=== PATIENT | female | born 1940 | race Caucasian/White ===

== ENCOUNTER 2016-09-10 09:31 | Day surgery (SDC) | payer MEDICARE, BC ==
[~2016-09-10] VITALS: Ht 162.6 cm; Wt 50.0 kg
[~2016-09-10 09:31] MED LIST: ASPI-557 PO; CHLO25TA2 PO; LIDOCAINE 1% (10mg/ml) 2ml SDV INJ ONE; LISI-625 PO; LR 1,000 ML IV SCH; MULT-933 PO; SOLI10TA5 PO
--- OUTSIDE RECORDS SUMMARY | 2016-09-10 09:36 | XMS REPORT | Referral Summary ---
Author Author [facility] Organization [facility] Address Unknown Phone Unavailable Care Team Providers Care Electrical Superintendent Name Role Phone Ion Borja Primary Care Physician [phone] Encounter VC Date(s): 11/04/15 - 11/04/15 [facility] [address] [place], [place] [address] Discharge Diagnosis: Female cystocele Discharge Diagnosis: Urinary incontinence Discharge Diagnosis: OAB (overactive bladder) Discharge Diagnosis: Rectocele, female Discharge Diagnosis: Cystocele, midline Discharge Disposition: 01-Home or Self Care Attending Physician: Sumi Blas APRN Admitting Physician: Sumi Blas APRN Vital Signs Most recent to 1 oldest [Reference Range]: Blood Pressure 132/60 mmHg [90-140/60-90 mmHg] (11/04/15 9:27 AM) Problem List Condition Effective Dates Status Health Status Informant Abnormal Active mammogram(Confirmed) Chronic interstitial Active cystitis (disorder)(Confirmed ) Allergies, Adverse Reactions, Alerts No Known Medication Allergies Medications lisinopril 5 mg oral tablet 5 mg 1 tabs, Oral, Daily, # 30 tabs, 0 Refill(s) Start Date: 11/04/15 Status: Ordered multivitamin 1 tabs, Oral, Daily Start Date: 02/01/14 Status: Ordered VESIcare 10 mg oral tablet 10 mg 1 tabs, Oral, Daily, # 30 tabs, 11 Refill(s), Pharmacy: [id number], 1 tabs Oral Daily Start Date: 11/04/15 Status: Ordered Vitamin C 1000 mg oral tablet 1 tabs, Oral, Daily Start Date: 02/01/14 Status: Ordered Results No data available for this section Immunizations Vaccine Date Refusal Reason influenza virus vaccine, inactivated 01/19/14 influenza virus vaccine, live 02/21/13 influenza virus vaccine, live 03/29/12 zoster vaccine live 02/20/08 Procedures Procedure Date Related Diagnosis Body Site Hernia repair 2007 Colonoscopy 2006 Social History Social History Type Response Smoking Status Never smoker Assessment and Plan Extracted from: Title: Office Visit Note Author: Sumi Blas PHYSICAL FITNESS TEACHER Date: 11/04/15 Assessment/Plan 1.OAB (overactive bladder) 2.Urinary incontinence 3.Female cystocele 4.Rectocele, female Patient wishes to continue with her current treatment regimen at this time. She will follow-up in the office in 6 months for symptom evaluation. If she has questions or concerns prior to that she will contact our office. All of her questions were answered to her satisfaction. Orders: solifenacin, 10 mg 1 tabs, Oral, Daily, # 30 tabs, 11 Refill(s), Pharmacy: [id number], 1 tabs Oral Daily
--- OUTSIDE RECORDS SUMMARY | 2016-09-10 09:36 | XMS REPORT | Referral Summary ---
Author Author [facility] Organization [facility] Address Unknown Phone Unavailable Care Team Providers Care Grain Origination Specialist Name Role Phone Keny Chowdhury Primary Care Physician [phone] Encounter VC Date(s): 10/17/14 - 10/17/14 [facility] [address] [place], [place] [address] Discharge Diagnosis: Overactive bladder Discharge Disposition: 01-Home or Self Care Attending Physician: Berhane Boucher MD Admitting Physician: Berhane Boucher MD Vital Signs Most recent to 1 oldest [Reference Range]: Blood Pressure 146/68 mmHg [90-140/60-90 mmHg] *HI* (10/17/14 10:13 AM) Problem List Condition Effective Dates Status Health Status Informant Abnormal Active mammogram(Confirmed) Chronic interstitial Active cystitis (disorder)(Confirmed ) Allergies, Adverse Reactions, Alerts No Known Medication Allergies Medications multivitamin 1 tabs, Oral, Daily Start Date: 02/01/14 Status: Ordered VESIcare 10 mg oral tablet See Instructions, 1 TABS ORAL DAILY, # 30 tabs, 4 Refill(s), eRx: [facility], 1 TABS ORAL DAILY Start Date: 12/12/14 Status: Ordered Vitamin C 1000 mg oral tablet 1 tabs, Oral, Daily Start Date: 02/01/14 Status: Ordered Results No data available for this section Immunizations Vaccine Date Refusal Reason influenza virus vaccine, inactivated 01/19/14 influenza virus vaccine, live 02/21/13 influenza virus vaccine, live 03/29/12 zoster vaccine live 02/20/08 Procedures Procedure Date Related Diagnosis Body Site Measurement of post-voiding residual urine 10/17/14 and/or bladder capacity by ultrasound, non-imaging Hernia repair 2007 Colonoscopy 2006 Social History Social History Type Response Smoking Status Never smoker Assessment and Plan Extracted from: Title: Ambulatory Patient Education Author: Berhane Boucher MD Date: Family Medicine Overactive Bladder, Adult The bladder has two functions that are totally opposite of the other. One is to relax and stretch out so it can store urine (fills like a balloon), and the other is to contract and squeeze down so that it can empty the urine that it has stored. Proper functioning of the bladder is a complex mixing of these two functions. The filling and emptying of the bladder can be influenced by: The bladder. The spinal cord. The brain. The nerves going to the bladder. Other organs that are closely related to the bladder such as prostate in males and the vagina in females. As your bladder fills with urine, nerve signals are sent from the bladder to the brain to tell you that you may need to urinate. Normal urination requires that the bladder squeeze down with sufficient strength to empty the bladder, but this also requires that the bladder squeeze down sufficiently long to finish the job. In addition the sphincter muscles, which normally keep you from leaking urine, must also relax so that the urine can pass. Coordination between the bladder muscle squeezing down and the sphincter muscles relaxing is required to make everything happen normally. With an overactive bladder sometimes the muscles of the bladder contract unexpectedly and involuntarily and this causes an urgent need to urinate. The normal response is to try to hold urine in by anny the sphincter muscles. Sometimes the bladder contracts so strongly that the sphincter muscles cannot stop the urine from passing out and incontinence occurs. This kind of incontinence is called urge incontinence. Having an overactive bladder can be embarrassing and awkward. It can keep you from living life the way you want to. Many people think it is just something you have to put up with as you grow older or have certain health conditions. In fact, there are treatments that can help make your life easier and more pleasant. CAUSES Many things can cause an overactive bladder. Possibilities include: Urinary tract infection or infection of nearby tissues such as the prostate. Prostate enlargement. In women, multiple pregnancies or surgery on the uterus or urethra. Bladder stones, inflammation or tumors. Caffeine. Alcohol. Medications. For example, diuretics (drugs that help the body get rid of extra fluid) increase urine production. Some other medicines must be taken with lots of fluids. Muscle or nerve weakness. This might be the result of a spinal cord injury , a stroke, multiple sclerosis or Parkinson's disease. Diabetes can cause a high urine volume which fills the bladder so quickly that the normal urge to urinate is triggered very strongly. SYMPTOMS Loss of bladder control. You feel the need to urinate and cannot make your body wait. Sudden, strong urges to urinate. Urinating 8 or more times a day. Waking up to urinate two or more times a night. DIAGNOSIS To decide if you have overactive bladder, your healthcare provider will probably : Ask about symptoms you have noticed. Ask about your overall health. This will include questions about any medications you are taking. Do a physical examination. This will help determine if there are obvious blockages or other problems. Order some tests. These might include: A blood test to check for diabetes or other health issues that could be contributing to the problem. Urine testing. This could measure the flow of urine and the pressure on the bladder. A test of your neurological system (the brain, spinal cord and nerves). This is the system that senses the need to urinate. Some of these tests are called flow tests, bladder pressure tests and electrical measurements of the sphincter muscle. A bladder test to check whether it is emptying completely when you urinate. Cytoscopy. This test uses a thin tube with a tiny camera on it. It offers a look inside your urethra and bladder to see if there are problems. Imaging tests. You might be given a contrast dye and then asked to urinate. X-rays are taken to see how your bladder is working. TREATMENT An overactive bladder can be treated in many ways. The treatment will depend on the cause. Whether you have a mild or severe case also makes a difference. Often , treatment can be given in your healthcare provider's office or clinic. Be sure to discuss the different options with your caregiver. They include: Behavioral treatments. These do not involve medication or surgery: Bladder training. For this, you would follow a schedule to urinate at regular intervals. This helps you learn to control the urge to urinate. At first , you might be asked to wait a few minutes after feeling the urge. In time, you should be able to schedule bathroom visits an hour or more apart. Kegel exercises. These exercises strengthen the pelvic floor muscles, which support the bladder. By toning these muscles, they can help control urination, even if the bladder muscles are overactive. A specialist will teach you how to do these exercises correctly. They will require daily practice. Weight loss. If you are obese or overweight, losing weight might stop your bladder from being overactive. Talk to your healthcare provider about how many pounds you should lose. Also ask if there is a specific program or method that would work best for you. Diet change. This might be suggested if constipation is making your overactive bladder worse. Your healthcare provider or a engagement lead can explain ways to change what you eat to ease constipation. Other people might need to take in less caffeine or alcohol. Sometimes drinking fewer fluids is needed, too. Protection. This is not an actual treatment. But, you could wear special pads to take care of any leakage while you wait for other treatments to take effect. This will help you avoid embarrassment. Physical treatments. Electrical stimulation. Electrodes will send gentle pulses to the nerves or muscles that help control the bladder. The goal is to strengthen them. Sometimes this is done with the electrodes outside of the body. Or, they might be placed inside the body (implanted ). This treatment can take several months to have an effect. Medications. These are usually used along with other treatments. Several medicines are available. Some are injected into the muscles involved in urination. Others come in pill form. Medications sometimes prescribed include: Anticholinergics. These drugs block the signals that the nerves deliver to the bladder. This keeps it from releasing urine at the wrong time. Researchers think the drugs might help in other ways, too. Imipramine. This is an antidepressant. But, it relaxes bladder muscles. Botox. This is still experimental. Some people believe that injecting it into the bladder muscles will relax them so they work more normally. It has also been injected into the sphincter muscle when the sphincter muscle does not open properly. This is a temporary fix, however. Also, it might make matters worse, especially in older people. Surgery. A device might be implanted to help manage your nerves. It works on the nerves that signal when you need to urinate. Surgery is sometimes needed with electrical stimulation. If the electrodes are implanted, this is done through surgery. Sometimes repairs need to be made through surgery. For example, the size of the bladder can be changed. This is usually done in severe cases only. HOME CARE INSTRUCTIONS Take any medications your healthcare provider prescribed or suggested. Follow the directions carefully. Practice any lifestyle changes that are recommended. These might include: Drinking less fluid or drinking at different times of the day. If you need to urinate often during the night, for example, you may need to stop drinking fluids early in the evening. Cutting down on caffeine or alcohol. They can both make an overactive bladder worse. Caffeine is found in coffee, tea and sodas. Doing Kegel exercises to strengthen muscles. Losing weight, if that is recommended. Eating a healthy and balanced diet. This will help you avoid constipation. Keep a journal or a log. You might be asked to record how much you drink and when, and also when you feel the need to urinate. Learn how to care for implants or other devices, such as pessaries. SEEK MEDICAL CARE IF: Your overactive bladder gets worse. You feel increased pain or irritation when you urinate. You notice blood in your urine. You have questions about any medications or devices that your healthcare provider recommended. You notice blood, pus or swelling at the site of any test or treatment procedure. You have an oral temperature above 102 F (38.9 C). SEEK IMMEDIATE MEDICAL CARE IF: You have an oral temperature above 102 F (38.9 C), not controlled by medicine. Document Released: 02/06/2010 Document Revised: 07/04/2012 Document Reviewed: ExitCare Patient Information 2014 [employer]. No follow up information was provided.
--- OUTSIDE RECORDS SUMMARY | 2016-09-10 09:36 | XMS REPORT | Referral Summary ---
Author Author [facility] Organization [facility] Address Unknown Phone Unavailable Care Team Providers Care Export Packer Name Role Phone Keny Chowdhury Primary Care Physician [phone] Encounter VC Date(s): 10/17/14 - 10/17/14 [facility] [address] [place], [place] [address] Discharge Diagnosis: Overactive bladder Discharge Disposition: 01-Home [...] DAILY, # 30 tabs, 4 Refill(s), eRx: [facility], 1 TABS ORAL DAILY Start Date: 12/12/14 [...] bladder worse. Your healthcare provider or a lens dotter can explain ways to change what you [...] 07/04/2012 Document Reviewed: ExitCare Patient Information 2014 [employer]. No follow up information was provided.
--- OUTSIDE RECORDS SUMMARY | 2016-09-10 09:36 | XMS REPORT | Referral Summary ---
Author Author [facility] Organization [facility] Address Unknown Phone Unavailable Care Team Providers Care Assembler Bonding Name Role Phone Ion Borja Primary Care Physician [phone] Encounter Date(s): 05/06/16 - 05/06/16 [facility] [address] [place] [address] Discharge Diagnosis: Microhematuria Discharge Disposition: 01-Home or Self Care Attending Physician: Berhane Boucher MD Admitting Physician: Berhane Boucher MD Vital Signs No data available for this section Problem List Condition Effective Dates Status Health Status Informant Abnormal Active mammogram(Confirmed) Chronic interstitial Active cystitis (disorder)(Confirmed ) Allergies, Adverse Reactions, Alerts No Known Medication Allergies Medications Aspir 81 mg, Oral, Daily, 0 Refill(s) Start Date: 05/06/16 Status: Ordered lisinopril 5 mg oral tablet 5 mg 1 tabs, Oral, Daily, # 30 tabs, 0 Refill(s) Start Date: 11/04/15 Status: Ordered multivitamin 1 tabs, Oral, Daily Start Date: 02/01/14 Status: Ordered VESIcare 10 mg oral tablet See Instructions, TAKE 1 TABLET BY MOUTH DAILY, # 30 tabs, eRx: [facility], TAKE 1 TABLET BY MOUTH DAILY Start Date: 12/26/15 Status: Ordered Vitamin C 1000 mg oral tablet 1 tabs, Oral, Daily Start Date: 02/01/14 Status: Ordered Results No data available for this section Immunizations Given and Recorded Vaccine Date Status Refusal Reason influenza virus vaccine, inactivated 01/19/14 Recorded influenza virus vaccine, live 02/21/13 Given influenza virus vaccine, live 03/29/12 Given zoster vaccine live 10/27/08 Given Procedures Procedure Date Related Diagnosis Body Site Measurement of post-voiding residual urine 05/06/16 and/or bladder capacity by ultrasound, non-imaging Hernia repair 2007 Colonoscopy 2006 Social History Social History Type Response Smoking Status Never smoker Assessment and Plan Extracted from: Title: Office Visit Note Author: Berhane Boucher MD Date: 05/06/16 Assessment/Plan 1.Microhematuria
--- OUTSIDE RECORDS SUMMARY | 2016-09-10 09:36 | XMS REPORT | Referral Summary ---
Author Author [facility] Organization [facility] Address Unknown Phone Unavailable Care Team Providers Care Offbearer Name Role Phone Keny Chowdhury Primary Care Physician [phone] Encounter VC Date(s): 10/17/14 - 10/17/14 [facility] [address] [place], [place] [address] Discharge Diagnosis: Overactive bladder Discharge Disposition: [...] DAILY, # 30 tabs, 4 Refill(s), eRx: [facility], 1 TABS ORAL DAILY Start Date: 12/12/14 [...] bladder worse. Your healthcare provider or a qa intern can explain ways to change what you [...] 07/04/2012 Document Reviewed: ExitCare Patient Information 2014 [employer]. No follow up information was provided.
--- OUTSIDE RECORDS SUMMARY | 2016-09-10 09:36 | XMS REPORT | Referral Summary ---
Author Author [facility] Organization [facility] Address Unknown Phone Unavailable Care Team Providers Care Plywood Layup Line Core Feeder Name Role Phone Keny Chowdhury Primary Care Physician [phone] Encounter VC Date(s): 10/17/14 - 10/17/14 [facility] [address] [place], [place] [address] Discharge Diagnosis: Overactive bladder Discharge [...] DAILY, # 30 tabs, 4 Refill(s), eRx: [facility]49[facility], 1 TABS ORAL DAILY Start Date: 12/12/14 [...] bladder worse. Your healthcare provider or a depot agent can explain ways to change what you [...] 07/04/2012 Document Reviewed: ExitCare Patient Information 2014 [employer]. No follow up information was provided.
--- OUTSIDE RECORDS SUMMARY | 2016-09-10 09:36 | XMS REPORT | Referral Summary ---
Author Author [facility] Organization [facility] Address Unknown Phone Unavailable Care Team Providers Care Underground Drill Operator Name Role Phone Keny Chowdhury Primary Care Physician [phone] Encounter VC Date(s): 10/17/14 - 10/17/14 [facility] [address] [place], [place] [address] Discharge Diagnosis: Overactive bladder Discharge [...] DAILY, # 30 tabs, 4 Refill(s), eRx: [facility] 475[facility], 1 TABS ORAL DAILY Start Date: 12/12/14 [...] bladder worse. Your healthcare provider or a agronomy advisor can explain ways to change what you [...] 07/04/2012 Document Reviewed: ExitCare Patient Information 2014 [employer]. No follow up information was provided.
--- OUTSIDE RECORDS SUMMARY | 2016-09-10 09:36 | XMS REPORT | Referral Summary ---
Author Author [facility] Organization [facility] Address Unknown Phone Unavailable Care Team Providers Care Doubler Operator Name Role Phone Ion Borja Primary Care Physician [phone] Encounter VC Date(s): 05/01/15 - 05/01/15 [facility] [address] [place], [place] [address] Discharge Diagnosis: OAB (overactive bladder) Discharge Diagnosis: Cystocele with rectocele Discharge Diagnosis: Urinary incontinence Discharge Diagnosis: Urinary urgency Discharge Disposition: 01-Home or Self Care Attending Physician: Sumi Blas APRN Admitting Physician: Sumi Blas APRN Vital Signs Most recent to 1 oldest [Reference Range]: Blood Pressure 160/64 mmHg [90-140/60-90 mmHg] *HI* (05/01/15 9:22 AM) Problem List Condition Effective Dates Status Health Status Informant Abnormal Active mammogram(Confirmed) Chronic interstitial Active cystitis (disorder)(Confirmed ) Allergies, Adverse Reactions, Alerts No Known Medication Allergies Medications multivitamin 1 tabs, Oral, Daily Start Date: 02/01/14 Status: Ordered VESIcare 10 mg oral tablet See Instructions, 1 TABS ORAL DAILY, # 30 tabs, 4 Refill(s), eRx: [facility], 1 TABS ORAL DAILY Start Date: 12/12/14 [...] Title: Office Visit Note Author: Sumi Blas AUTOMOTIVE ARTIST Date: 05/01/15 Assessment/Plan 1.OAB (overactive bladder) 2.Urinary urgency 3.Urinary incontinence 4.Cystocele with rectocele She'll follow-up in the office in 6 months. She will continue taking Vesicare daily. If her symptomsdecline or she has questions or concerns prior to this she can contact our office. All of her questions were answered to her satisfaction.
--- OUTSIDE RECORDS SUMMARY | 2016-09-10 09:36 | XMS REPORT | Referral Summary ---
Author Author [facility] Organization [facility] Address Unknown Phone Unavailable Care Team Providers Care Panel Monitor Name Role Phone Keny Chowdhury Primary Care Physician [phone] Encounter VC Date(s): 10/17/14 - 10/17/14 [facility] [address] [place], [place] [address] Discharge Diagnosis: Overactive bladder Discharge Disposition: [...] DAILY, # 30 tabs, 4 Refill(s), eRx: [facility] [address], 1 TABS ORAL DAILY Start Date: 12/12/14 [...] bladder worse. Your healthcare provider or a electronics worker can explain ways to change what you [...] 07/04/2012 Document Reviewed: ExitCare Patient Information 2014 [employer]. No follow up information was provided.
--- OUTSIDE RECORDS SUMMARY | 2016-09-10 09:36 | XMS REPORT | Summary of Care ---
Author Alisson Escobedo M.D. Organization Unknown Address [address] [place], [place] [id number] Phone Unavailable Care Team Providers Care Leather Belt Maker Name Role Phone Unavailable Unavailable Functional Status Functional Status Health Issues* Name Dates Details No known functional status health issues Status: Cognitive Status Health Issues* Name Dates Details No known cognitive status health issues Status: Problems Name Dates Details Onychomycosis (110.1, B35.1) Status: Active Medications Name Dates Details Elmiron 100 MG Oral Capsule * Started 03-Jul-2008 ActiveCentrum Silver Oral Tablet TAKE 1 TABLET DAILY. * Refills: 0 * Started 10-Jul-2009 ActiveVESIcare 5 MG Oral Tablet * Refills: 0 * Started 06-May-2011 ActiveHydrocortisone Butyrate 0.1 % External Ointment Apply to lower lip after meals and HS * Quantity: 1X15 GM Tube Refills: 0 * Started 06-May-2011 Active Allergies and Adverse Reactions Name Dates Details No Known Drug Allergies Status: Active Past Medical History Name Dates Details Actinic keratosis (702.0, L57.0) Status: Resolved Basal cell carcinoma of skin of trunk (173.51, C44.519) Status: Resolved History of seborrheic keratosis (V13.3, Z87.2) Status: Resolved Inflamed seborrheic keratosis (702.11, L82.0) Status: Resolved History of hyperkeratosis of skin (V13.3, Z87.2) Status: Resolved Procedures Procedure Dates Details Surgical history not documented FUNGUS CULTURE -SKIN, HAIR, NAIL 5100 Immunization Name Dates Details Immunizations not documented Social History Name Dates Details Never smoker Smoking Status* Never smoker Vital Signs Date Test Result Details No Known Vitals to report Results Date Description Value Details Results not documented Plan of Care Instructions* Instructions not documented Planned Observations* Name Dates Details Planned Goals not documented Goal Planned Encounters* Appointment; Provider: Manuel June On 09:45 Instructions * No Known Instructions Encounters Appointment; Alisson Zhang Encounter Diagnosis: Problem not documented On 09:45 Appointment; Alisson Zhang Encounter Diagnosis: Problem not documented On 09:45 Appointment; Alisson Zhang Encounter Diagnosis: Problem not documented On 09:30
[2016-09-10 09:46] VITALS: BP 160/70; PULSE 85; RESP 14; TEMP 97.8; O2SAT 98; Ht 162.6 cm; Wt 50.0 kg
--- NOTE | 2016-09-10 10:21 | ANESPREOP ---
Anesthesia Record Date and Time DATE: 09/10/16 TIME: 10:19 Proposed Surgical Procedure COLONOSCOPY NPO since: midnight Allergies: Coded Allergies: No Known Drug Allergies (Verified Allergy, Unknown, 09/10/16) Ht/Wt/BMI Height: 5 ' 4.00 " Weight: 50.000 kg BMI: 18.9 kg/m2 Vital Signs Date Time Temp Pulse Resp B/P Pulse Ox O2 Delivery O2 Flow Rate FiO2 09/10/16 09:46 97.8 85 14 160/70 98 Room Air Medications Inpatient Medications Current Medications Medications (Trade) Dose Ordered Sig/Steph Start Time Stop Time Status Last Admin Dose Admin Lactated Ringer's (Lactated Ringers) 1,000 ml @ 30 mls/hr Q24H 09/10/16 07:00 09/10/16 10:10 30 MLS/HR Aspirin (Aspir 81) 81 Mg Tablet.dr, 1 TAB PO DAILY, (Reported) Last Taken: on 09/08/16 0800 Chlorthalidone (Chlorthalidone) 25 Mg Tablet, 1 TAB PO DAILY, (Reported) Last Taken: on 09/08/16 0800 Lisinopril (Lisinopril) 5 Mg Tablet, 1 TAB PO DAILY, (Reported) Last Taken: on 09/08/16 0800 Multivitamin (Multi-Day Vitamins) 1 Each Tablet , 1 TAB PO DAILY, (Reported) Last Taken: on 09/08/16 0800 Solifenacin Succinate (Vesicare) 10 Mg Tablet, 1 TAB PO DAILY, (Reported) Last Taken: on 09/08/16 0800 Currently on Beta Tino: No Medical/Surgical History Anesthesia PMH: Reports: *Hypertension, Cancer (SKIN CA), Denies: *Diabetes, Anesthesia Reactions (NO AIRWAY ISSUES), Arthritis, Clotting Problems, Glaucoma , Malignant Hyperthermia, Renal Disease, Sleep Apnea, Thyroid Disease Smoking Status: Never smoker Has pt. smoked today?: No Use Chewing Tobacco?: No Second Hand Exposure: No Substance Use Type: does not use Alcohol Intake: none HX of Last Menstrual Period: AGE 53 Past Surgical History Orthopedic Surgeries: Abdominal Surgeries: Yes - HERNIA REPAIR Genitourinary Surgeries: Cardiac Surgeries: Endocrine Surgeries: Reproductive Surgeries: Yes - d&c Neurological Surgeries: Ear Surgeries: Nose Surgeries: Throat Surgeries: Other Surgeries: Yes - COLONOSCOPY Anesthesia Adverse Reactions: FOUND none Family Hx of Anesthesia Advers: none Hx of Motion Sickness: No Physical Exam Respiratory: Bilat breath sounds equal, Lungs clear Cardiovascular: FOUND Regular rate, rhythm, FOUND No murmur Airway Assessment Mallampati Score: II TMD: 3 Fingerbreadths Neck Extension: Good Overall Assessment: No Airway Concerns ASA: 2 Plan Anesthesia Plan: TIVA Discussion Discussed risks/options/alternatives of anesthesia and questions answered. Patient consents. Nursing pain assessment noted. Attestation Statement Prior to the delivery of any anesthetic medication, I examined the patient, developed the plan, obtained the patient's consent and discussed the risk and benefits of the procedure with the patient/guardian. ANTHONY BLAKE September 10, 2016 10:21
--- NOTE | 2016-09-10 11:34 | ANESPREOP ---
Anesthesia Record Date and Time DATE: 09/10/16 TIME: 11:33 Pre-Op Diagnosis crcs Proposed Surgical Procedure COLONOSCOPY NPO since: midnight Allergies: Coded Allergies: No Known Drug Allergies (Verified Allergy, Unknown, 09/10/16) Ht/Wt/BMI Height: 5 ' 4.00 " Weight: 50.000 kg BMI: 18.9 kg/m2 Vital Signs Date Time Temp Pulse Resp B/P Pulse Ox O2 Delivery O2 Flow Rate FiO2 09/10/16 09:46 97.8 85 14 160/70 98 Room Air Medications Inpatient Medications Current Medications Medications (Trade) Dose Ordered Sig/Steph Start Time Stop Time Status Last Admin Dose Admin Lactated Ringer's (Lactated Ringers) 1,000 ml @ 30 mls/hr Q24H 09/10/16 07:00 09/10/16 10:10 30 MLS/HR Aspirin (Aspir 81) 81 Mg Tablet.dr, 1 TAB PO DAILY, (Reported) Last Taken: on 09/08/16 0800 Chlorthalidone (Chlorthalidone) 25 Mg Tablet, 1 TAB PO DAILY, (Reported) Last Taken: on 09/08/16 0800 Lisinopril (Lisinopril) 5 Mg Tablet, 1 TAB PO DAILY, (Reported) Last Taken: on 09/08/16 0800 Multivitamin (Multi-Day Vitamins) 1 Each Tablet , 1 TAB PO DAILY, (Reported) Last Taken: on 09/08/16 0800 Solifenacin Succinate (Vesicare) 10 Mg Tablet, 1 TAB PO DAILY, (Reported) Last Taken: on 09/08/16 0800 Currently on Beta Tino: No Medical/Surgical History Anesthesia PMH: Reports: *Hypertension, Cancer (SKIN CA), Denies: *Diabetes, Anesthesia Reactions (NO AIRWAY ISSUES), Arthritis, Clotting Problems, Glaucoma , Malignant Hyperthermia, Renal Disease, Sleep Apnea, Thyroid Disease Smoking Status: Never smoker Has pt. smoked today?: No Use Chewing Tobacco?: No Second Hand Exposure: No Substance Use Type: does not use Substance last used: unknown Alcohol Intake: none Last Drink: unknown HX of Last Menstrual Period: AGE 53 Past Surgical History Orthopedic Surgeries: Abdominal Surgeries: Yes - HERNIA REPAIR Genitourinary Surgeries: Cardiac Surgeries: Endocrine Surgeries: Reproductive Surgeries: Yes - d&c Neurological Surgeries: Ear Surgeries: Nose Surgeries: Throat Surgeries: Other Surgeries: Yes - COLONOSCOPY Anesthesia Adverse Reactions: FOUND none Family Hx of Anesthesia Advers: none Hx of Motion Sickness: No Pertinent Findings EKG Rhythm: Sinus Rhythm Physical Exam Respiratory: Bilat breath sounds equal, Lungs clear Cardiovascular: FOUND Regular rate, rhythm, FOUND No murmur Airway Assessment Mallampati Score: II TMD: 3 Fingerbreadths Neck Extension: Good Overall Assessment: No Airway Concerns ASA: 2 Plan Anesthesia Plan: TIVA Discussion Discussed risks/options/alternatives of anesthesia and questions answered. Patient consents. Nursing pain assessment noted. Present: Spouse Attestation Statement Prior to the delivery of any anesthetic medication, I examined the patient, developed the plan, obtained the patient's consent and discussed the risk and benefits of the procedure with the patient/guardian. MARC VALDIVIA CRNA September 10, 2016 11:34
[2016-09-10] MEDS ORDERED: LIDOCAINE 1% (10mg/ml) 2ml SDV ONE (11:38)
[2016-09-10] MEDS ORDERED: PROPOFOL 500mg 50 ML IV ONE (11:38)
[2016-09-10 12:05] VITALS: BP 101/49; PULSE 62; RESP 12; TEMP 97; O2SAT 95
[2016-09-10 12:20] VITALS: BP 124/59; PULSE 62; RESP 16; O2SAT 95
[2016-09-10 12:35] VITALS: BP 132/61; PULSE 64; RESP 16; O2SAT 95
--- NOTE | 2016-09-10 12:40 | ANESPO ---
Post-Op Note Date 09/10/16 Time: 12:10 Status Vital Signs Date Time Temp Pulse Resp B/P Pulse Ox O2 Delivery O2 Flow Rate FiO2 09/10/16 12:35 64 16 132/61 95 Room Air 09/10/16 12:05 97.0 Respiratory Function: Airway patent Cardiovascular Function: Regular pulse Mental Status: Alert/oriented Pain Level Intensity: 0 Unable to Assess Pain Due To: Medicated/Sleeping Hydration: IV infusing Complications during Recovery None apparent Follow-Up Instructions Instructions Per Surgeon JESSICA MARQUEZ CRNA September 10, 2016 12:40
--- NOTE | 2016-09-12 07:35 | OPNOTEF ---
DATE OF PROCEDURE 09/10/2016 SURGEON Cristhian Larson MD PREOPERATIVE DIAGNOSIS Personal history for rectal bleeding. POSTOPERATIVE DIAGNOSIS Personal history for rectal bleeding, mild proctitis. PROCEDURE Colonoscopy with biopsies from rectum via cold biopsy technique. ANESTHESIA TIVA BRIEF HISTORY/INDICATIONS Mrs. Rivera is a 76-year-old female who recently presented to my office as a result of her history for rectal bleeding. The patient stated that she had been noting some rectal bleeding which she described as bright red in nature. The patient states that over the last week or two the bleeding has begun to subside. Nonetheless, with this history for rectal bleeding, it was recommended to the patient that she undergo a colonoscopy for further evaluation. For completeness, please refer to history and physical included within the patient's electronic medical record. FINDINGS Upon colonoscopy the patient was found have a moderate number of diverticula within the sigmoid colon region. There was no evidence for angiodysplastic lesions, polyps or andriy malignancies. The patient was found to have some minimal erythema within the rectum consistent with that of a mild proctitis. I did elect to go ahead and proceed with a few biopsies from this area of minimal proctitis via cold biopsy technique. PROCEDURE After informed consent was obtained, the patient was brought to the endoscopy suite and placed on the table in left lateral decubitus position. The patient subsequently underwent total intravenous anesthesia by the nurse adult basic education instructor per my request. Formal time-out was then completed. Next, digital rectal examination was performed. Normal sphincter tone. No rectal masses were appreciated. An Olympus colonoscope was inserted in the anus and advanced with the lumen of the colon under direct visualization at all times till the cecum was ascertained. Triangulation of the taenia coli, ileocecal valve and appendiceal lumen were all visualized. Scope was then slowly withdrawn, again maintaining visualization of the lumen at all times. As stated above, the entire colon was without evidence for angiodysplastic lesions, polyps, or andriy allergies. The patient was found to have a moderate number of diverticula within the sigmoid colon as the colonoscope was being withdrawn. There was no evidence for active bleeding from within any of these diverticula. Colonoscope was then continued to be withdrawn till was brought forth back to rectal vault. J-maneuver was performed. No worrisome perianal pathology was noted. Scope was allowed to straighten and withdrawn back to the level of the anal verge. Rectum was carefully inspected and found to have a mild component of some erythema consistent with that of minimal proctitis. I elected to go ahead proceed with a few biopsies from the rectum which was performed via cold biopsy technique. The colonoscope was then removed from the patient's anal verge. The patient tolerated the procedure without difficulty and was sent back to the preop area in stable condition. Will await the biopsy results from today's biopsies and will proceed accordingly with further recommendations thereafter. It is my clinical intuition that the patient's recent rectal bleeding was likely a result of her diverticulosis. BOBBY
== END 2016-09-10 12:50 | disposition home or self-care (01) ==
LOC: SCU 09:31
PROVIDERS: ATTEND Surgery
DX: K62.89 Other specified diseases of anus and rectum (principal); K62.5 Hemorrhage of anus and rectum; K64.4 Residual hemorrhoidal skin tags; K64.8 Other hemorrhoids; K57.30 Diverticulosis of large intestine without perforation or abscess without bleeding; Z86.010 Personal history of colon polyps; Z79.82 Long term (current) use of aspirin; Z79.899 Other long term (current) drug therapy
CPT/HCPCS: 45380; J7120; 88305